=== PATIENT | female | born 1950 | race American Indian/Alaskan Native ===

== ENCOUNTER 2017-03-18 07:36 | Day surgery (SDC) | payer MEDICARE, OTHER ==
[2017-03-18] MEDS ORDERED: Propofol 10 mg/ml Inj (20 ML) ONE (12:22)
[2017-03-18] MEDS ORDERED: Midazolam 2 MG/2 ML VIAL ONE (12:22)
[2017-03-18] MEDS ORDERED: Bupivacaine-Epi 0.25%-1:200,000 PF Inj ONE (12:23)
[2017-03-18] MEDS ORDERED: Lidocaine 1% Inj (20ml) ONE (12:23)
[2017-03-18] MEDS ORDERED: Lidocaine Hydrochloride 5 ML INJ ONE (12:26)
[2017-03-18] MEDS ORDERED: ISOSULFAN BLUE 10 MG/ML ML SC ONE (12:29)
[2017-03-18] MEDS ORDERED: Sodium Chloride 0.9% 0 ML IV ONE (12:29)
[2017-03-18] MEDS ORDERED: Methylene Blue 10 mg/mL(10ml) IV ONE (12:29)
[2017-03-18] MEDS ORDERED: Lactated Ringer's 1,000 ML IV ONE ×2 (12:45→14:50)
[2017-03-18] MEDS: Vancomycin 1 gm/D5W 200 ml 1 GM/200 ML BAG IVPB ONE ×2 (12:53→13:00)
[2017-03-18] MEDS ORDERED: ePHEDrine 50 mg/ml Inj ONE (14:33)
[2017-03-18] MEDS ORDERED: Bupivacaine HCl 0.25% PF (10 ml) Inj ONE (15:01)
[2017-03-18] MEDS ORDERED: Phenylephrine 10 mg/ml Inj ONE (15:14)
--- NOTE | 2017-03-18 15:16 | MAM ---
PROCEDURE: POST NEEDLE LOCALIZATION MAMMOGRAM RIGHT BREAST HISTORY: RIGHT BREAST US GUIDED NEEDLE LOC COMPARISON: Ultrasound-guided needle localization 03/18/2017. TECHNIQUE: Following ultrasound-guided needle localization of right breast mass, full field digital mammography was performed in mediolateral and craniocaudal views. FINDINGS: Needle localization is identified adequately identifying the mass in question at the right lower outer quadrant with the stiffener in the center of the mass in question. Post pes radiograph demonstrates the lesion in the center of a large lumpectomy specimen. Ultrasound-guided biopsy surgical clip is also seen in preliminary and post lumpectomy specimen radiograph. IMPRESSION: Status post sulcal ultrasound-guided needle localization of right breast mass with wide margins identified in excisional biopsy right breast. Please see discussion above.
--- NOTE | 2017-03-18 15:23 | US ---
HISTORY: Right breast neoplasm. TECHNIQUE/FINDINGS: Timeout was called for ultrasound guided wire needle localization procedure for neoplasm at the 7 o'clock radius 2 cm from the nipple right breast. Preliminary ultrasonography confirm location of this lesion. In a sterile field, overlying skin was cleaned. Three cc of lidocaine was utilized for local anesthesia and under ultrasound control, a 7.5 cm needle with advanced through the mass providing adequate deployment of the the wire through the needle with the needle socially removed. Postprocedure ultrasound reveals good deployment of the wire into the center of the mass with the focused emboli just distal to the mass. The wire was properly secured in good position. Patient tolerated the procedure well with no complications. Postoperative specimen radiograph demonstrates the mass in the center are of a large lumpectomy specimen with excellent margins.. OTHER FINDINGS: None. IMPRESSION: Status post successful ultrasound-guided needle localization preoperatively with wide margins in the specimen radiograph submitted following lumpectomy. We await full histopathological analysis.
--- NOTE | 2017-03-18 15:38 | PCM.SURG1 ---
Surgeon's Initial Post Op Note - Surgeon's Notes Surgeon: Lamberto Logging Tractor Operator Swamp: Latanya PGY3, Leonid MAHAJAN Type of Anesthesia: General Endo, Local Pre-Operative Diagnosis: R breast CA Operative Findings: R breast mass Post-Operative Diagnosis: Same Operation Performed: R partial mastectomy w. SNLBx Specimen/Specimens Removed: R breast mass, and axillary lymph nodes Estimated Blood Loss: EBL {In ML}: 10 Blood Products Given: N/A Drains Used: No Drains Post-Op Condition: Good Date of Surgery/Procedure: 03/18/17 Time of Surgery/Procedure: 15:38
[2017-03-18] MEDS ORDERED: HYDROmorphone 0.5 mg/0.5 ml ISec IVP PRN (15:40)
--- NOTE | 2017-03-18 16:19 | NM ---
HISTORY: 66Y Year old female with breast cancer. TECHNIQUE: Multiple injections of 1.1 mCi of 99m Tc filtered sulfur colloid (total volume of 0.8 ml) were administered into the periareolar subcutaneous and deep tissue at the 12, 3, 6 and 9 o'clock radiuses at the periareolar skin right breast. Anterior and oblique projection images of the chest were subsequently obtained. FINDINGS: Activity is identified in all 4 injection sites in the periareolar skin right breast. Two foci of uptake are seen identified at the right axillary tail region/upper outer quadrant periphery indicating likely 2 lymph nodes. IMPRESSION: Positive lymph nodes identified at the axillary tail numbering 2 foci faintly hyperactive at the right breast.
[2017-03-18 18:03] VITALS: BP 118/77; PULSE 65; RESP 16; TEMP 97.6; O2SAT 96
--- NOTE | 2017-03-20 06:01 | OP ---
PROCEDURE DATE: 03/18/2017 PREOPERATIVE DIAGNOSIS: Right breast invasive mammary cancer. POSTOPERATIVE DIAGNOSIS: Right breast invasive mammary cancer. PROCEDURES DONE: 1. Preoperative localization and right partial mastectomy. 2. Right axillary sentinel lymph node dissection. SURGEON: Marco Orantes MD. ASSISTANTS: VANESA Nair and Kee Collins, PGY-3 resident. TYPE OF ANESTHESIA: General endotracheal tube anesthesia. ESTIMATED BLOOD LOSS: Around 20 mL. DRAINS: None. PATHOLOGIES: 1. The partial mastectomy specimen was sent for the radiological information as well as permanent pathology. 2. Eldridge lymph node from the right axillary area was sent for the pathology and it was negative for any malignancy and it was confirmed intraoperatively with frozen section and on intraoperative findings, the patient had right inferior outer quadrant, very small focus of the breast cancer. DESCRIPTION OF PROCEDURE: On intraoperative steps, this 66-year-old female who was diagnosed with right breast invasive mammary cancer and the patient was consented for preop middle localization and right breast lumpectomy and sentinel lymph node dissection. The patient was brought to the OR, placed supine on the operating table after induction of anesthesia, the right breast as well as the right axilla was prepped and draped in the usual sterile fashion. The first right axillary incision was made after incising skin and subcutaneous tissue. The clavipectoral fascia was incised, axillary content was entered and axillary lymph node was identified with gamma probe and it was resected and sent for the frozen section. Now the incision was made in the right lower outer quadrant of approximately 8 cm after incising skin and breast tissue. Upper and lower flap was created. The medial and lateral flap was created. Inferior flap was dissected up to the costal margin. Lateral flap was dissected up to the latissimus dorsi and superior flap was dissected up to the upper part of the breast and medially the dissection was carried down beyond the nipple on the inner quadrant side, now the dissection was carried down deep up to the pectoral fascia on the all side and the breast tissue was dissected free from the underlying pectoral fascia and dissection was carried down laterally up to the latissimus dorsi. Specimen was sent to the table for the pathology. There was the proper hemostasis in each and every part of the procedure. The intraoperative fluoroscopic confirmation was done for negative lymph nodes. Now the both wound was irrigated and both wound was closed, subcutaneous with 3-0 Vicryl, skin with 4-0 Monocryl and dry sterile dressing was applied. The patient tolerated the procedure well. Count of the instrument and gauze was correct. There was no apparent complication. The patient was extubated in OR and sent to the postanesthesia care unit in stable condition. Marco Orantes MD
== END 2017-03-18 18:40 | disposition home or self-care (01) ==
LOC: C.SDS 07:36
PROVIDERS: ATTEND Surgery Surgical Critical Care
DX: C50.511 Malignant neoplasm of lower-outer quadrant of right female breast (principal)
CPT/HCPCS: 19285; 19301; 38525; 78195; 88305; 88307; 88331; 88342; A9541; J1885; J2250; J2370; J2405; J2704; J3010; J3370; J7120

== ENCOUNTER 2018-08-21 15:54 | Emergency (ER) | payer MEDICARE, OTHER ==
[2018-08-21 17:27] VITALS: BMI 43.5
[2018-08-21 17:34] VITALS: RESP 18
--- NOTE | 2018-08-21 18:26 | C.PDOC ---
History Of Present Illness Patient is a 68 year old female with pmhx of HTN, hypothyroidism, Breast cancer who presents to ED with complaints of disequilibrium for 2 months. Patient reports over past month, episodes have been more frequent. Patient reports episodes last several seconds, where she feels as though she is swaying, pt says she braces herself and feeling passes. Denies falls, nausea, association with positional changes. Patient reports she spoke to her PMD regarding these complaints, discussion was had regarding a possible medication change however pt never followed up with PMD and resented to ED for further evaluation. Denies chest pain, SOB, abdominal pain, diarrhea. <Anita Whitman - Last Filed: 08/21/18 20:31> History Per: Patient History/Exam Limitations: no limitations Onset/Duration Of Symptoms: Days Current Symptoms Are (Timing): Gone Associated Symptoms Preceding Syncopal Episode: No Predromal Symptoms (Sudden Onset) - Symptoms Of CVA Associated Symptoms: denies: Impaired Speech Recent Head Trauma: No <Anita Whitman - Last Filed: 08/21/18 20:31> <Kee Jay DO - Last Filed: 08/22/18 00:53> Chief Complaint (Nursing): Dizziness/Lightheaded Past Medical History Reviewed: Historical Data, Nursing Documentation, Vital Signs Vital Signs: Last Vital Signs Temp 97.9 F 08/21/18 17:27 Pulse 62 08/21/18 17:27 Resp 18 08/21/18 17:27 BP 139/86 08/21/18 17:27 Pulse Ox 94 L 08/21/18 17:27 - Medical History PMH: HTN, 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) Denies: Chronic Kidney Disease Other Surgeries: B/L knee replacements - [facility] DRAINAGE OF RIGHT BREAST, OPEN APPROACH (04/11/17) EXCISION OF RIGHT BREAST, EXTERNAL APPROACH (04/11/17) Family History: States: Other Other Family History: daughter recently diagnosed with vertigo - Social History Hx Tobacco Use: Yes (former) Hx Alcohol Use: No Hx Substance Use: No - Immunization History Hx Tetanus Toxoid Vaccination: No Hx Influenza Vaccination: No Hx Pneumococcal Vaccination: No <Anita Whitman - Last Filed: 08/21/18 20:31> Vital Signs: Last Vital Signs Temp 98.9 F 08/21/18 20:03 Pulse 65 08/21/18 20:03 Resp 18 08/21/18 17:27 BP 132/83 08/21/18 20:03 Pulse Ox 94 L 08/21/18 20:31 - [facility] Procedures DRAINAGE OF RIGHT BREAST, OPEN APPROACH (04/11/17) EXCISION OF RIGHT BREAST, EXTERNAL APPROACH (04/11/17) <Kee Jay DO - Last Filed: 08/22/18 00:53> Review Of Systems Eyes: Negative for: Vision Change Cardiovascular: Negative for: Chest Pain, Palpitations, Orthopnea, Edema Respiratory: Negative for: Cough, Shortness of Breath Gastrointestinal: Negative for: Nausea, Abdominal Pain Neurological: Positive for: Other (disequilibrium). Negative for: Weakness, Numbness, Headache <Anita Whitman - Last Filed: 08/21/18 20:31> Physical Exam - Physical Exam Appears: Non-toxic, No Acute Distress Skin: Normal Color, Warm, Dry (diffusely dry), No Pale, No Cyanotic Head: Atraumatic, Normacephalic Eye(s): bilateral: Normal Inspection, PERRL, EOMI, Other (no nystagmus) Oral Mucosa: Dry Cardiovascular: Rhythm Regular, No Murmur Respiratory: Normal Breath Sounds Gastrointestinal/Abdominal: Bowel Sounds, Soft, No Tenderness Extremity: Pedal Edema (2+), No Calf Tenderness Neurological/Psych: Oriented x3, Normal Speech, Normal Cognition <WhitmanAnita - Last Filed: 08/21/18 20:31> ED Course And Treatment - Laboratory Results Result Diagrams: 08/21/18 19:36 08/21/18 19:36 Lab Interpretation: No Changes Compared To Prior Results ECG: Viewed By Nc ECG Rhythm: Sinus Bradycardia (w/ PAC) O2 Sat by Pulse Oximetry: 94 Pulse Ox Interpretation: Normal Reassessment Condition: Improved <Anita Whitman - Last Filed: 08/21/18 20:31> - Laboratory Results Result Diagrams: 08/21/18 19:36 08/21/18 19:36 Lab Results: Troponin I < 0.0120 ng/mL (0.00-0.120) 08/21/18 19:36 Total Bilirubin 0.3 mg/dL (0.2-1.3) 08/21/18 19:36 AST 26 U/L (14-36) 08/21/18 19:36 ALT 13 U/L (9-52) 08/21/18 19:36 Alkaline Phosphatase 77 U/L (38-126) 08/21/18 19:36 Total Protein 7.3 g/dL (6.3-8.3) 08/21/18 19:36 Albumin 4.3 g/dL (3.5-5.0) 08/21/18 19:36 Globulin 3.1 gm/dL (2.2-3.9) 08/21/18 19:36 Albumin/Globulin Ratio 1.4 (1.0-2.1) 08/21/18 19:36 Urine Color Yellow (YELLOW) 08/21/18 19:36 Urine Clarity Clear (Clear) 08/21/18 19:36 Urine pH 6.0 (5.0-8.0) 08/21/18 19:36 Ur Specific [place] 1.025 (1.003-1.030) 08/21/18 19:36 Urine Protein Negative mg/dL (NEGATIVE) 08/21/18 19:36 Urine Glucose (UA) Negative mg/dL (Normal) 08/21/18 19:36 Urine Ketones Negative mg/dL (NEGATIVE) 08/21/18 19:36 Urine Blood Negative (NEGATIVE) 08/21/18 19:36 Urine Nitrate Negative (NEGATIVE) 08/21/18 19:36 Urine Bilirubin Negative (NEGATIVE) 08/21/18 19:36 Urine Urobilinogen 0.2.e.u./dl mg/dL (0.2-1.0) 08/21/18 19:36 Ur Leukocyte Esterase Negative Vlad/uL (Negative) 08/21/18 19:36 Urine WBC (Auto) 1 /hpf (0-5) 08/21/18 19:36 Ur Squamous Epith Cells < 1 /hpf (0-5) 08/21/18 19:36 Urine Bacteria Rare (<OCC) 08/21/18 19:36 <Kee Jay DO - Last Filed: 08/22/18 00:53> Medical Decision Making Medical Decision Makin68 year old female presenting with complaints of disequilibrium CBC CMP Mg/Phos EKG Troponin UA IVF Meclizine 25mg <Anita Whitman - Last Filed: 08/21/18 20:31> Disposition Counseled Patient/Family Regarding: Studies Performed, Diagnosis, Need For Followup, Rx Given - Disposition Disposition Time: 20:22 - POA Present On Arrival: None <Anita Whitman - Last Filed: 08/21/18 20:31> <Kee Jay DO - Last Filed: 08/22/18 00:53> - Disposition Referrals: Delaney Vera MD [Staff Provider] - Disposition: HOME/ ROUTINE Condition: IMPROVED Additional Instructions: KATHARINE GENAO, thank you for letting us take care of you today. The emergency medical care you received today was directed at your acute symptoms. If you were prescribed any medication, please fill it and take as directed. It may take several days for your symptoms to resolve. Return to the Emergency Department if your symptoms worsen, do not improve, or if you have any other problems. Please contact your doctor or call one of the physicians/clinics you have been referred to that are listed on the Patient Visit Information form that is included in your discharge packet. Bring any paperwork you were given at discharge with you along with any medications you are taking to your follow up visit. Our treatment cannot replace ongoing medical care by a primary care provider outside of the emergency department. Thank you for allowing the [facility] team to be part of your care today. Follow up with your primary care doctor htis week for re-evaluation and further management. Prescriptions: Meclizine [Meclizine*] 25 mg PO Q6 PRN #20 tab PRN Reason: Dizziness Instructions: Vertigo (a Type of Dizziness) (DC) Forms: [facility] ([place]) - Clinical Impression Clinical Impression: Vertigo, Sinusitis - PA / ACCOUNTS ADJUSTABLE CLERK / Resident Statement ROSA MARIA has reviewed & agrees with the documentation as recorded. ROSA MARIA has examined the patient and agrees with the treatment plan. <Kee Jay DO - Last Filed: 08/22/18 00:53>
[2018-08-21] MEDS ORDERED: Sodium Chloride 0.9% 1,000 ML IV SCH (18:45)
[2018-08-21] MEDS ORDERED: Sodium Chloride 0.9% 1,000 ML ONE (19:15)
[2018-08-21 19:42] LABS: BASO % 0.6 % (0.0-2.0); EOS # 0.1 K/uL (0.0-0.7); EOS % 1.3 % (0.0-4.0); HEMOGLOBIN 12.6 g/dL (11.0-16.0); LYMPH # 1.8 K/uL (1.0-4.3); LYMPH % 25.5 % (20.0-40.0); MEAN CELL VOLUME 89.1 fL (81.0-99.0); MEAN CORPUSCULAR HEMOGLOBIN 28.4 pg (27.0-31.0); MEAN CORPUSCULAR HGB CONC 31.9 g/dL (33.0-37.0); MEAN PLATELET VOLUME 9.6 fL (7.2-11.7); MONO # 0.5 K/uL (0.0-0.8); MONO % 7.4 % (0.0-10.0); NEUT # 4.5 K/uL (1.8-7.0); NEUT % 65.2 % (50.0-75.0); RBC 4.42 Mil/uL (3.80-5.20); RED CELL DISTRIBUTION WIDTH 14.7 % (11.5-14.5); WHITE BLOOD COUNT 6.9 K/uL (4.8-10.8)
[2018-08-21 20:01] LABS: ALB/GLOB RATIO 1.4 (1.0-2.1); ALBUMIN 4.3 g/dL (3.5-5.0); ALT/SGPT 13 U/L (9-52); AST/SGOT 26 U/L (14-36); BLOOD UREA NITROGEN 25 mg/dL (7-17); CALCIUM 9.8 mg/dl (8.6-10.4); GFR NON-AFRICAN AMERICAN > 60
[2018-08-21 20:02] LABS: SQUAMOUS EPITHIAL < 1 /hpf (0-5); URINE BACTERIA RARE (<OCC)
[2018-08-21 20:04] VITALS: BP 132/83; PULSE 65; TEMP 98.9
[2018-08-21 20:22] VITALS: O2SAT 94
[2018-08-21 20:22] LABS: URINE BILIRUBIN NEGATIVE (NEGATIVE); URINE CLARITY Clear (Clear); URINE COLOR YELLOW (YELLOW); URINE GLUCOSE (UA) NEGATIVE (Normal)
[2018-08-21 20:23] LABS: URINE BLOOD NEGATIVE (NEGATIVE); URINE PROTEIN NEGATIVE (NEGATIVE)
[2018-08-21 20:26] LABS: URINE LEUKOCYTE ESTERASE NEGATIVE Leu/uL (Negative); URINE UROBILINOGEN 0.2.E.U./dL mg/dL (0.2-1.0)
--- NOTE | 2018-08-22 20:30 | CARD ---
APPROVED REPORT Date of service: 08/21/2018 EKG Measurement Heart [id number] <Conclusion> Sinus bradycardia with premature atrial complexes Otherwise normal ECG
== END 2018-08-21 20:29 | disposition home or self-care (01) ==
LOC: C.ER 15:54
DX: R42 Dizziness and giddiness (principal); J32.9 Chronic sinusitis, unspecified; E03.9 Hypothyroidism, unspecified; I10 Essential (primary) hypertension; Z87.891 Personal history of nicotine dependence; Z96.653 Presence of artificial knee joint, bilateral; Z85.3 Personal history of malignant neoplasm of breast
CPT/HCPCS: 80053; 81001; 82948; 83735; 84100; 84484; 85025; 93005; 99285; J7030